=== PATIENT | female | born 1975 | race Caucasian/White ===

== ENCOUNTER → 2018-10-18 | Day surgery (SDC) | payer BC ==
[~2018-10-18] MED LIST: GLUCAGON 1 MG/ML VIAL IM STA
[2018-10-18 08:54] VITALS: BP 119/63; PULSE 87; RESP 14; TEMP 97.5
--- NOTE | 2018-10-21 12:39 | MR ---
EXAMINATION TYPE: MR Enterography DATE OF EXAM: 10/18/2018 COMPARISON: CT abdomen pelvis dated 02/01/2015 HISTORY: Pain, Possible obstruction, Crohn's Disease history CONTRAST: Standard multiplanar, multisequence imaging of the abdomen is performed without and with IV contrast, patient is injected with 7.5 mL intravenous Gadavist gadolinium contrast. Oral Volumen and Water was given as per enterography protocol. FINDINGS: There are multiple loops of nondilated small bowel in the pelvis measuring up to 2.6 cm con taining air-fluid levels. The terminal ileum is thickened without acute surrounding inflammatory fat stranding. On coronal T2 imaging Comb's sign is seen along the right hemicolon indicative of chronic colitis. No adenopathy is seen in the abdomen or pelvis. The terminal ileum demonstrates no abnormal enhancement however there are 2 long segment loop of duodenum and jejunum in the left midabdomen and left upper quadrant that demonstrate abnormal bowel wall enhancement. The first segment begins at the fourth portion of the duodenum extending into the proximal jejunum measuring a total distance of jignesh roximately 13 cm. Within the left midabdomen a long segment measures approximately 9 cm of the jejunu m. No other abnormal enhancement of the bowel is seen. The visualized portions of the rectum there is no abnormal fistula formation or sinus tract. No abnormal enhancement of the colon is seen. There is very minimal intrahepatic biliary ductal prominence without gross dilation. The pancreatic d uct is also prominent although none enlarged by size criteria. There is mild to moderate right-sided hydronephrosis with a proximal ureteral filling defect measurin g approximately 3 mm there is a nonenhancing left lower pole renal cyst measuring 7 mm. Visualized po rtions of the liver enhances homogeneously as does the spleen and adrenal glands. Pancreatic parenchy ma is unremarkable. Abdominal aorta is of normal caliber. Uterus is heterogenous with right ovarian c yst noted measuring 2.7 cm. Within the distal ileum there are 3 areas of abnormal enhancement and narrowing particularly seen on postcontrast series 701 image 73 through 79 measuring distance of 2.9 cm and image 82 measuring a dis tance of 3.1 cm as well as image 85 with a distance of approximately 4.8 cm. These bowel loops appear tethered to the central mesentery and in the right lower quadrant. No abscess or fistula is seen. IMPRESSION: 1. Multifocal acute inflammatory change of the small bowel involving the distal duodenum and 2 areas of jejunum with long segment enhancement. Additionally there are 3 right lower quadrant long segment areas of active inflammation of the distal ileum with low-grade associated strictures. No current melquiades dence of obstruction. 2. No colonic involvement is seen. No adenopathy, abscess, fistula, or sinus tract is identified. 3. Mild to moderate right-sided hydronephrosis with partially obstructing proximal ureteral calculus.
== END ==
LOC: RADMRIMAIN 08:11
PROVIDERS: ATTEND Internal Medicine Gastroenterology
DX: K50.90 Crohn's disease, unspecified, without complications (principal); N13.2 Hydronephrosis with renal and ureteral calculous obstruction
CPT/HCPCS: 96372; 72197; 74183; J1610; A9585

== ENCOUNTER → 2020-07-16 | Day surgery (SDC) | payer BC ==
[2020-07-16 09:33] VITALS: BP 125/65; PULSE 73; TEMP 98
--- NOTE | 2020-07-16 12:53 | MR ---
EXAMINATION TYPE: MR Enterography DATE OF EXAM: 07/16/2020 COMPARISON: MRI enterography October 18, 2018 HISTORY: Chron' s disease, abdominal pain CONTRAST: Standard multiplanar, multisequence imaging of the abdomen is performed without and with IV contrast, patient is injected with 5.5 mL intravenous Gadavist gadolinium contrast. Oral Volumen and Water was given as per enterography protocol. FINDINGS: Bowel: Satisfactory fluid-filled distention of stomach without new eccentric suspicious mucosal enhan cement or wall thickening. Improved distention of proximal duodenal sweep on current study, no suspic ious eccentric mural enhancement or wall thickening. Area of prior wall thickening and abnormal enhan cement third and fourth portion of duodenum extending into proximal jejunum shows persistent severe w all thickening with mild increased diffuse enhancement, the degree of enhancement less prominent than prior study. This now contiguously extends into jejunal loops in the lateral left mid to upper abdom en, longer than prior joining the second area of acute inflammation on prior study. No obvious new fi stula or sinus tract. No well-formed fluid collection or abscess. On current study terminal ileum shows poor distention with new fairly moderate concentric wall thicke betty and suspicious enhancement over a moderate length segment estimated approximately 15 cm in lengt h. No new active inflammatory changes involving right-sided ileal loops. No active inflammatory changes to visualized portions of the colon. No free fluid. Other: Stable mild borderline moderate right-sided hydronephrosis and proximal to mid hydroureter. St able 6 mm thin-walled cyst mid to lower pole of the left kidney coronal image 16. Interval resolution of 2.7 cm right ovarian cyst or cystic lesion. IMPRESSION: Recurrent active inflammatory roll changer a moderate to large segment of the distal ileum including terminal ileum on current study. Active inflammatory change of the distal duodenum is less prominent on current study but shows continuous longer extension into left-sided jejunal loops on cu rrent exam. Interval resolution of active inflammatory changes involving smaller segments in the righ t lower abdomen and upper pelvis.
== END ==
LOC: RADMRIMAIN 09:14
PROVIDERS: ATTEND Internal Medicine Gastroenterology
DX: K50.00 Crohn's disease of small intestine without complications (principal); N13.30 Unspecified hydronephrosis; N13.4 Hydroureter; N83.209 Unspecified ovarian cyst, unspecified side
CPT/HCPCS: 96372; 72197; 74183; J1610; A9585

== ENCOUNTER → 2023-05-19 | Day surgery (SDC) | payer BC ==
[2023-05-19 08:42] VITALS: BP 127/61; PULSE 78; RESP 16; TEMP 98.2
--- NOTE | 2023-05-21 10:35 | MR ---
EXAMINATION TYPE: MR Enterography DATE OF EXAM: 05/19/2023 10:01 AM COMPARISON: 11/15/2020. CLINICAL INDICATION: Female 48 years old with a history of K50.90 CROHN'S DISEASE, UNSPECIFIED, WITHO UT COMPL. Crohn's disease. TECHNIQUE: Standard multiplanar, multisequence imaging of the abdomen is performed without and with I V contrast, patient is injected with 675 mL intravenous Gadavist gadolinium contrast. Oral NeuLumEX w as given as per enterography protocol. FINDINGS: LOWER CHEST: No significant findings. ABDOMEN Bowel: Mucosal hyperenhancement involving the distal ascending colon to the rectum with mild wall thi ckening. Cervicalgia wall thickening in this region measuring up to 6 mm in the proximal sigmoid ricky on. Additional region of small bowel is present series 1001 image 104 with mucosal hyperenhancement and w all thickening up to 6 mm. Additional area more superiorly series 1101 series 5 through 12. A 1 9 phy siologic is No evidence of bowel obstruction, no evidence for stricture or fistulous tract formation. Scattered c olonic diverticula are seen throughout the colon. The appendix is normal. Peritoneum: No evidence of pneumoperitoneum, free fluid, or adenopathy. No organizing fluid collecti ons. Liver: Unremarkable. Gallbladder and Bile ducts: Gallbladder appears surgically absent there is physiologic dilation of th e intrahepatic and central intrahepatic bili system measuring up to 8 mm and the common bile duct. Fi ndings mildly progressed from prior Pancreas: No ductal dilation. Spleen: Within normal limits for size. Adrenal glands: Unremarkable. Kidneys: No hydronephrosis.. No solid renal No marginal Bladder: Unremarkable. Reproductive: Unremarkable. Lymph Nodes: Vasculature: No aortic aneurysm. Musculoskeletal: The osseous structures appear intact. Abdominal wall: Unremarkable. IMPRESSION: Findings suggesting active Crohn's disease involving at least 2 skip lesions within small bowel and i n the area within the sigmoid colon which could represent additional site of active Crohn's disease v ersus colitis and/or nondistention. No bowel obstruction. No evidence for abscess.
== END ==
LOC: RADMRIMAIN 07:45
PROVIDERS: ATTEND Internal Medicine Gastroenterology
DX: K50.90 Crohn's disease, unspecified, without complications (principal); D64.9 Anemia, unspecified; F10.90 Alcohol use, unspecified, uncomplicated; Z79.899 Other long term (current) drug therapy
CPT/HCPCS: 96372; 72197; 74183; J1610; A9585